=== PATIENT | male | born 1985 | race Caucasian/White ===

== ENCOUNTER 2024-04-03 15:48 | Emergency (ER) | payer OTHER, SELFPAY ==
[2024-04-03 15:51] VITALS: BP 199/115; PULSE 75; RESP 16; TEMP 36.8; O2SAT 98
--- NOTE | 2024-04-03 16:30 | ED.GENADUL_ITS ---
Discharge Plan Disposition Patient Disposition: Home Condition: Stable Discharge Details Clinical Impression: Foreign body in eye, Abrasion, corneal, Metal foreign body in eye region ED Provider: Mary Carmen Martinez Home Meds and New Rx's Prescriptions: No Action No Known Home Meds Discharge Instructions Instructions: Corneal Abrasion (ED), Eye Foreign Body (ED) Additional Instructions: Please go directly to [facility] in [facility]. They will be able to help remove the piece of metal and rust ring that are abutting your pupil. I am also concerned that you may have a foreign body in your upper lid so they should also evaluate for this. Your tetanus is updated here today. If they do not prescribe you antibiotics, please return here we will make sure you are able to get the antibiotic ointment required for the foreign body in your eye. If you develop fever/chills, increased pain, discharge, visual changes or other new/worsening symptoms please seek care urgently once again. Otherwise, please follow-up as recommended by [facility]. Your blood pressure is quite high today, please follow up with primary care as soon as possible. We will have care management help arrange for follow up. Referrals: [facility] [Outside] HPI General Date/Time Provider Initiated Documentation: 04/03/24 16:12 . Limitations to Documentation: no limitations . Information obtained by: patient and RN notes reviewed . History of Present Illness 38 year old M presents to the emergency department with the chief complaint of left eye pain, FB sensation, redness, irritation, described as moderate, with intensity rated at 3. Quality is described as burning, and is localized to the eyes. Patient reports no radiation. Patient started experiencing this day(s) and it has been constant. No relieving factors improve symptom(s), No exacerbating factors reported . Patient notes no other symptoms.. Patient did receive the following treatments prior to arrival, none Related Data Home Medications Medication Instructions Recorded Confirmed Unknown [No Known Home Meds] 04/03/24 04/03/24 Allergies Allergy/AdvReac Type Severity Reaction Status Date / Time No Known Allergies Allergy Unverified 04/03/24 15:53 General Stated Complaint: EyeProblem JANELL: 4 Review of Systems Constitutional Constitutional: Reports as per HPI, Denies chills and Denies fever(s) Eyes Eyes: Reports as per HPI Cardiovascular Cardiovascular: Reports as per HPI and Denies lightheadedness Respiratory Respiratory: Denies cough Integumentary/Breasts Skin/Breast: Reports as per HPI, Denies rash, Denies skin pain and Denies skin swelling Exam Const General: cooperative, healthy appearing, comfortable, no acute distress, well developed and well groomed Nutritional Appearance: average body habitus and well nourished Orientation: alert, awake and oriented x3 HENMT Head: normal to inspection, normocephalic and atraumatic Ears: hearing grossly normal bilaterally and external ears normal General nose exam: external nose normal Face and sinus: normal facial exam and face symmetric Mouth: oral mucosae normal, lip normal and moist mucous membranes Eyes Visual Barnhart: normal visual barnhart by confrontation Alignment and Position: alignment normal Periorbital: periorbital findings normal Eyelids: eyelids normal Conjunctivae: conjunctival abnormality left conjunctival injection Sclera: scleral abnormality left scleral injection Cornea: corneas abnormal on the left fluorescein used, abrasion and foreign body metallic and with rust ring present and fluorescein used Pupils: PERRL, normal by confrontation and accommodation normal EOM: EOM intact bilaterally Resp Effort & Inspection: normal respiratory effort, able to speak in complete sentences and no respiratory distress Skin General skin exam: no rashes or lesions noted Neuro General: patient alert and patient awake Cognition: normal cognition Speech: speech normal Gait: normal gait Course Vital Signs Vital signs: Vital Signs Temperature 36.8 C 04/03/24 15:51 Pulse 75 04/03/24 15:51 Respiratory Rate 16 04/03/24 15:51 Blood Pressure 199/115 H 04/03/24 15:51 Pulse Oximetry 98 04/03/24 15:51 Temperature 36.8 C 04/03/24 15:51 Pulse 75 04/03/24 15:51 Respiratory Rate 16 04/03/24 15:51 Respiratory Effort Normal 04/03/24 15:54 Blood Pressure 199/115 H 04/03/24 15:51 Pulse Oximetry 98 04/03/24 15:51 Oxygen Delivery Method Room Air 04/03/24 15:51 Oxygen Flow Rate 0 04/03/24 15:51 Pain Level 3 04/03/24 15:51 Medical Decision Making Patient is a pleasant 38 year old male prsenting today with c/c of left eye pain, foreign body. 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 He immediately washed the eye but reports that he has had persistent foreign body sensation. Denies any visual changes but states that the eye has been tearing quite a bit today. He will need a tetanus shot while here. Patient does not receive routine medical care, does not have a primary care. Is an active smoker. Does not wear contact lenses or glasses. Has not routinely seen by [facility]. Note exam, patient appears uncomfortable, tearing and erythematous left eye. Extraocular's are intact. Pupils are equal round and reactive. Not able to visualize foreign body with simple light and gross evaluation. Patient had immediate relief with tetracaine drops. Evaluated with fluorescein and slit- lamp and small punctate piece of metal is able to be seen at the 12 o'clock position abutting the pupil, within the pupil and eyes are more dilated. As well as what appears to be a rust ring at around 11 o'clock position again, directly near the pupil. With this in mind, I immediately asked staff to call hospital for [facility] eye care as this will need to be dealt with in an expeditious manner to spare vision and given its proximity to pupil, is out of my comfort ability. Tetanus was updated. Patient also had a corneal abrasion that appeared more linear over the pupil. Questioned if the patient may have had a foreign body still in the upper lid. While working with the patient, I was informed that [facility] is able to see the patient immediately if we discharged him in expeditious manner. I discussed this with the patient. Again, his tetanus was updated here. The foreign body was not removed by myself. His upper lid was not everted by myself. I did advise that he should have [facility] evaluate this further when he arrives at their facility immediately after leaving here. However, I do feel that this is the most appropriate plan for care. If he is not able to receive the antibiotic ointment from them, advised that he come back here. While here, patient was also noted to be quite hypertensive. He is not having any evidence of endorgan damage. Patient is an active smoker and reports he is not overly surprised by his blood pressure. I advised that he will need follow- up with primary care. Have placed him on care management list and asked for expeditious primary care follow-up. I do not see need for emergent alteration of his blood pressure, particularly given the pain and irritation of the left eye which is likely contributing to the blood pressure elevation. Return precaution discussed with the patient. All his questions and concerns were addressed and he is agreement this plan. Quality:[facility] Related Social Needs: No Data to Display PFSH All Active Problems (Updated 04/03/24 @ 16:31 by YANG Hu) Metal foreign body in eye region (Acute) Abrasion, corneal (Acute) Foreign body in eye (Acute) Social History Smoking risk assessment performed?: No
[2024-04-03 16:40] VITALS: BP 210/123
[2024-04-03] MEDS: Tetracaine 0.5% 4 ML BTL (16:40)
[2024-04-03] MEDS: Fluorescein STRIPS 100/BOX 1 MG OP (16:40)
--- NOTE | 2024-04-03 19:39 | NUR.NOTE ---
Patient needs to establish pcp to f/u for elevated blood pressure cresencio. Referral to care management.Nursing Note:
== END 2024-04-03 16:42 | disposition home or self-care (01) ==
LOC: ER 17:18
PROVIDERS: Emergency Provider Physician Assistant
DX: T15.02XA Foreign body in cornea, left eye, initial encounter (principal); R03.0 Elevated blood-pressure reading, without diagnosis of hypertension; Z23 Encounter for immunization; W44.D9XA Other magnetic metal objects entering into or through a natural orifice, initial encounter; Y92.89 Other specified places as the place of occurrence of the external cause; Y99.0 Civilian activity done for income or pay; F17.200 Nicotine dependence, unspecified, uncomplicated
CPT/HCPCS: 90471; 90715; 99283